=== PATIENT | female | born 1995 | race Caucasian/White ===

== ENCOUNTER 2020-01-01 22:03 | Emergency (ER) | payer MEDICAID, SELFPAY ==
[2020-01-01 22:04] VITALS: BP 119/71; PULSE 107; RESP 18; TEMP 36.3; O2SAT 99; BMI 25.3
--- NOTE | 2020-01-01 22:35 | ED.VIS.GEN ---
History of Present Illness Chief Complaint: Female C/O Informant: Patient Narrative: 24-year-old female G4, P2 at approximately 10 weeks presents with lower abdominal cramping and vaginal spotting. States it began earlier this afternoon. Denies any significant vaginal bleeding. Patient did have previous miscarriage at 5 weeks. States that she has had ultrasound which showed a live intrauterine . Past Medical History - Allergies and Home Meds Allergies/Adverse Reactions: Allergies ciprofloxacin [From Cipro] Allergy (Verified 11/06/15 01:15) Other sharp stomach and body pains Primary Care Physician: Joe Raza DO [Primary Care Provider] - Past Medical History: None Surgical History: no surgical history Lives: With Family Smoking Status: Current every day smoker Alcohol: None Drugs: None Review of Systems General: Denies: Chills, Fever, Sweats Eyes: Denies: Visual changes - bilaterally, Diplopia ENT: Denies: Rhinorrhea, Sore throat Cardiovascular: Denies: Chest pain, Palpitations Respiratory: Denies: Dyspnea, Cough, Dyspnea on exertion Gastrointestinal: Denies: Abdominal pain, Nausea, Vomiting, Diarrhea, Melena, Hematochezia Genitourinary: Reports: - - vaginal bleeding. Denies: Dysuria, Hematuria, Frequency Musculoskeletal: Denies: Back pain, Extremity Pain Skin: Denies: Rash, Wounds Neurological: Denies: Headache, Weakness, Numbness Physical Exam Vital Signs/Narrative: Vital Signs Temp Pulse Resp BP Pulse Ox 01/01/20 22:04 97.4 F L 107 H 18 119/71 99 Inital Vital Signs reviewed: Yes General: Well nourished, Well developed, No Acute Distress Head: Normocephalic, Atraumatic Eyes: Perrl, EOMI ENT: Moist mucous membranes, No rhinorrhea Neck: Supple, Nontender Cardiovascular: Regular rate, Regular rhythm, No murmurs Respiratory: No distress, CTA bilaterally, Chest nontender Abdomen: Soft, Nontender, Nondistended, Normal bowel sounds Back: Nontender, Normal Inspection Extremities: Nontender, No edema Skin: Normal color, No rash Neurological: Alert, Oriented x3, Cranial nerves II-XII grossly intact, Normal Strength, Normal Sensation Psychological: Normal affect, Normal Mood Diagnostic/Tx/Re-eval Laboratory Data 01/01/20 01/01/20 22:45 22:45 HCG, Quant [id number] H Urine Color Yellow Urine Clarity Clear Urine pH 6.5 Ur Specific [place] 1.020 Urine Protein Negative Urine Glucose (UA) Normal Urine Ketones 5 H Urine Occult Blood 150 H Urine Nitrite Negative Urine Bilirubin Negative Urine Urobilinogen 1 H Ur Leukocyte Esterase 500 H Urine RBC 0-5 SEEN Urine WBC 0-5 SEEN Ur Squamous Epith Cells 0-5 SEEN Urine Bacteria RARE Urine Mucus 0 SEEN - Medical Decision Making Patient appears well and nontoxic. Benign abdominal exam. Bedside ultrasound reveals live single intrauterine with a heart rate of approximately 152 bpm. Pelvic exam shows moderate amount of blood within the vaginal vault. The os is slightly open. In for threatened versus inevitable . Discussed this extensively with patient. Patient will follow-up with [facility] on Saturday. Asked to return for worsening pain or heavier bleeding. Patient agreeable and discharged home in stable condition. Impression: 1. threatened ED Disposition - Plan for ED Patient: Disposition: Home or Assisted Living Instructions: ED Possible Miscarriage Threatened Referrals: Joe Raza DO [Primary Care Provider] - Additional Instructions: Follow-up with your [facility] on Saturday for repeat beta hCG. Please return for worsening pain or vaginal bleeding.
[2020-01-01 22:52] LABS: Mucous, Urine 0 SEEN /hpf (<or=2+)
[2020-01-01 23:02] LABS: Color, Urine Yellow (Yellow); Glucose, Dipstick Normal (Normal); Ketone-Dipstick 5 mg/dl (Negative); Leukocyte Esterase-Dipstick 500 /ul (Negative); Nitrite-Dipstick Negative (Negative); Occult Blood-Urine 150 /ul (Negative); Protein-Dipstick Negative (Negative); Urine Bilirubin Dipstick Negative (Negative); Urine Clarity Clear (Clear); Urine Urobilinogen 1 mg/dl (Normal); Urine pH 6.5 (5.0 - 8.0)
[2020-01-01 23:09] LABS: Bacteria RARE /hpf (None Seen); Squamous Epithelial Cells - UA 0-5 SEEN /hpf (5-10); White Blood Cells 0-5 SEEN /hpf (0-5)
[2020-01-01 23:10] LABS: Red Blood Cells-Urine 0-5 SEEN /hpf (0-5)
== END 2020-01-02 00:10 | disposition home or self-care (01) ==
PROVIDERS: Emergency Provider Emergency Medicine; PCP Pediatrics
DX: O20.0 Threatened abortion (principal); F17.200 Nicotine dependence, unspecified, uncomplicated; Z3A.10 10 weeks gestation of pregnancy
CPT/HCPCS: 81001; 84702; 99282

== ENCOUNTER 2020-03-19 20:30 | Outpatient (CLI) | payer MEDICAID, SELFPAY ==
[2020-03-19 20:45] VITALS: BP 118/77; PULSE 109; TEMP 36.7
[2020-03-19 20:59] VITALS: BMI 25.0
[2020-03-19 21:05] LABS: Color, Urine Yellow (Yellow); Glucose, Dipstick Normal (Normal); Ketone-Dipstick Negative (Negative); Leukocyte Esterase-Dipstick 25 /ul (Negative); Nitrite-Dipstick Negative (Negative); Occult Blood-Urine 150 /ul (Negative); Protein-Dipstick Negative (Negative); Specific Gravity, Urine 1.025 (1.002-1.030); Urine Bilirubin Dipstick Negative (Negative); Urine Clarity Sl. Cloudy (Clear); Urine Urobilinogen Normal (Normal)
[2020-03-19 21:24] LABS: Amphetamine Urine VISTA NEGATIVE (<1000 ng/mL); Barbiturate Urine VISTA NEGATIVE (< 200 ng/mL); Benzodiazepine Urine VISTA NEGATIVE (< 200 ng/mL); Cocaine Urine VISTA NEGATIVE (< 300 ng/mL); Ecstacy Urine VISTA NEGATIVE (< 500 ng/mL); Methadone Urine VISTA NEGATIVE (< 300 ng/mL); PCP Urine VISTA NEGATIVE (< 25 ng/mL); THC Urine VISTA NEGATIVE (< 50 ng/mL); Vista UDS pH Range 6
--- NOTE | 2020-03-19 21:25 | OB.TRI.NOTE ---
- Problem List (1) 21 weeks gestation of Status: Acute (2) Abdominal cramping affecting Status: Acute History of Present Illness Date of Service: 03/19/20 Was patient seen by the physician?: Yes Reason For Visit: R/O LABOR Date of Service: 03/19/20 Final BASILIA: 07/26/20 Gestational age: 21 Weeks and 4 Days History of Present Illness: Patient is a at 21.4 weeks gestation that presents to triage for leaking mucus and fluid and stomach cramping. Positive movement. Denies any recent intercourse or vaginal bleeding. Allergies ciprofloxacin [From Cipro] Allergy (Verified 03/19/20 21:00) Other sharp stomach and body pains Laboratory Studies: Laboratory Tests 03/19/20 03/19/20 Range/Units 20:50 20:50 Urine Color Yellow (Yellow) Urine Clarity Sl. Cloudy (Clear) Urine pH 6.0 (5.0 - 8.0) Ur Specific [place] 1.025 (1.002-1.030) Urine Protein Negative (Negative) mg/dl Urine Glucose (UA) Normal (Normal) mg/dl Urine Ketones Negative (Negative) mg/dl Urine Occult Blood 150 H (Negative) /ul Urine Nitrite Negative (Negative) Urine Bilirubin Negative (Negative) mg/dL Urine Urobilinogen Normal (Normal) mg/dl Ur Leukocyte Esterase 25 H (Negative) /ul Urine Opiates Screen NEGATIVE (< 300 ng/mL) Urine Methadone Screen NEGATIVE (< 300 ng/mL) Ur Barbiturates Screen NEGATIVE (< 200 ng/mL) Ur Phencyclidine Scrn NEGATIVE (< 25 ng/mL) Ur Amphetamines Screen NEGATIVE (<1000 ng/mL) U Methamphetamin-MDMA NEGATIVE (< 500 ng/mL) U Benzodiazepines Scrn NEGATIVE (< 200 ng/mL) Urine Cocaine Screen NEGATIVE (< 300 ng/mL) U Cannabinoids Screen NEGATIVE (< 50 ng/mL) Ur Drug Screen Comment Review of Systems Constitutional: Denies: Chills, Fever, Malaise HEENT: Denies: Head Aches Cardiovascular: Denies: Chest Pain Respiratory: Denies: Cough, Shortness of Breath Gastrointestinal: Reports: Abdominal Pain Genitourinary: Denies: Dysuria Neurological: Denies: Headaches Physical Exam Vitals: Vital Signs Temp Pulse BP 98.0 F 109 H 118/77 03/19/20 20:45 03/19/20 20:45 03/19/20 20:45 General: Alert, Cooperative Cardiovascular: Regular rate Lungs: Normal air movement Abdomen: Soft, Non Tender, Gravid Neurological: Cranial nerves II-XII grossly intact Impression/Plan Patient is a at 21.4 weeks gestation with leaking of fluid and abdominal cramping. FHT 144 bpm via doppler Positive movement ROM plus collected and sent- negative UA collected and sent- Positive for blood and Leukocyte Estrace Will treat with Macrobid 100 mg PO BID x 7 days Discharge home
[2020-03-19 21:27] LABS: ROM Internal Control Test YES-OK TO RESULT pt. (Internal QC); ROM Patient Test Negative (Negative)
== END 2020-03-19 21:40 | disposition home or self-care (01) ==
LOC: WPOUT 20:33 → WP 20:33
PROVIDERS: PCP Pediatrics; Visit Provider Advanced Practice Midwife
DX: O26.892 Other specified pregnancy related conditions, second trimester (principal); R10.9 Unspecified abdominal pain; Z3A.21 21 weeks gestation of pregnancy
CPT/HCPCS: 59025; 59050; 80307; 81002; 84112; 87086; 87088; 99218; G0378

== ENCOUNTER 2020-05-26 17:54 | Outpatient (CLI) | payer MEDICAID, SELFPAY ==
[2020-05-26 18:04] VITALS: BMI 26.9
[2020-05-26 18:08] VITALS: BP 113/67; PULSE 102; TEMP 36.7; O2SAT 98
[2020-05-26 18:10] VITALS: BP 113/67; PULSE 102; TEMP 36.7; O2SAT 98
[2020-05-26 18:54] LABS: Mucous, Urine 0 SEEN /hpf (<or=2+); Red Blood Cells-Urine 0 SEEN /hpf (0-5)
[2020-05-26 18:55] LABS: Color, Urine Yellow (Yellow); Glucose, Dipstick Normal (Normal); Ketone-Dipstick Negative (Negative); Leukocyte Esterase-Dipstick 100 /ul (Negative); Nitrite-Dipstick Negative (Negative); Occult Blood-Urine 10 /ul (Negative); Protein-Dipstick Negative (Negative); Urine Bilirubin Dipstick Negative (Negative); Urine Clarity Clear (Clear); Urine Urobilinogen Normal (Normal)
[2020-05-26 19:03] LABS: Bacteria RARE /hpf (None Seen); Squamous Epithelial Cells - UA 0-5 SEEN /hpf (5-10); White Blood Cells 0-5 SEEN /hpf (0-5)
--- NOTE | 2020-05-27 08:28 | OB.TRI.HP_ITS ---
History of Present Illness Date of Service: 05/26/20 Was patient seen by the physician?: No Reason For Visit: RULE OUT LABOR Date of Service: 05/26/20 Final BASILIA: 07/27/20 Gestational age: 31 Weeks and 2 Days History of Present Illness: 24yo @ 31.2 weeks c/o multiple non specific concerns, just not feeling well today. Pt c/o pressure and some contractions- intermittent and mild Allergies ciprofloxacin [From Cipro] Allergy (Verified 03/19/20 21:00) Other sharp stomach and body pains Laboratory Studies: Laboratory Tests 05/26/20 Range/Units 18:45 Urine Color Yellow (Yellow) Urine Clarity Clear (Clear) Urine pH 7.0 (5.0 - 8.0) Ur Specific [place] 1.010 (1.002-1.030) Urine Protein Negative (Negative) mg/dl Urine Glucose (UA) Normal (Normal) mg/dl Urine Ketones Negative (Negative) mg/dl Urine Occult Blood 10 H (Negative) /ul Urine Nitrite Negative (Negative) Urine Bilirubin Negative (Negative) mg/dL Urine Urobilinogen Normal (Normal) mg/dl Ur Leukocyte Esterase 100 H (Negative) /ul Urine RBC 0 SEEN (0-5) /hpf Urine WBC 0-5 SEEN (0-5) /hpf Ur Squamous Epith Cells 0-5 SEEN (5-10) /hpf Urine Bacteria RARE (None Seen) /hpf Urine Mucus 0 SEEN (<or=2+) /hpf Physical Exam Vitals: Vital Signs Temp Pulse BP Pulse Ox 98.0 F 102 H 113/67 98 05/26/20 18:10 05/26/20 18:10 05/26/20 18:10 05/26/20 18:10 NST - FHR Rate Baby A Baseline: 140 Variability:: Moderate Accelerations:: 15 x 15 Decelerations:: None NST Reactive:: Yes FHR Category:: Category I Uterine Activity:: irregular- palpate mild per nursing staff. Impression/Plan 24yo @ 31.2 wks- Abd pain, False labor, UTI 1) urine dip shows blood- Keflex ordered 2) RTO as scheduled or sooner 3) cervix closed/50- not in labor 4) dc home
[2020-06-18 14:11] VITALS: PULSE 107; O2SAT 97
[2020-06-18 14:16] VITALS: PULSE 111; O2SAT 98
[2020-06-18 14:19] VITALS: BP 105/62; PULSE 102; PULSE 108; TEMP 36.9; O2SAT 98
== END 2020-05-26 19:35 | disposition home or self-care (01) ==
LOC: WPOUT 17:59 → OBT 18:00
PROVIDERS: PCP Pediatrics; Referring Provider Obstetrics & Gynecology; Visit Provider Obstetrics & Gynecology
DX: O47.03 False labor before 37 completed weeks of gestation, third trimester (principal); O23.43 Unspecified infection of urinary tract in pregnancy, third trimester; Z3A.31 31 weeks gestation of pregnancy
CPT/HCPCS: 59025; 59050; 81001; 87086; 87088; 99218; G0378

== ENCOUNTER 2020-06-18 13:55 | Outpatient (CLI) | payer MEDICAID, SELFPAY ==
[2020-06-18 14:49] VITALS: BMI 28.4
--- NOTE | 2020-06-24 05:27 | OB.TRI.NOTE ---
HPI - General HPI Narrative ANJUM BECKETT, is a 24 F who presents for pelvic pressure. PFSH Home Medications vit,[id number] [Prenatabs FA] 1 tab PO DAILY 11/06/15 [History Last Taken 05/25/20 19:00] Allergy/AdvReac Type Severity Reaction Status Date / Time ciprofloxacin [From Cipro] Allergy Other Verified 03/19/20 21:00 Social History Smoking Status: Current every day smoker History Elective abortions Hx Para 1 Spontaneous abortions Hx # Term Pregnancies Ectopic pregnancies Hx # Pregnancies Multiple births # of living children NST FHR Rate Baby A Baseline: 130 Variability:: Moderate Accelerations:: 15 x 15 Decelerations:: None NST Reactive:: Yes Uterine Activity:: Irregular Assessment & Plan Assessment/Plan (1) Threatened premature labor: Status: Acute Code(s): O47.00 - False labor before 37 completed weeks of gestation, unspecified trimester Plan: Reactive NST
== END 2020-06-18 14:10 | disposition home or self-care (01) ==
LOC: WPOUT 14:48 → WP 14:49
PROVIDERS: PCP Pediatrics; Visit Provider Obstetrics & Gynecology
DX: Z00.00 Encounter for general adult medical examination without abnormal findings (principal)
CPT/HCPCS: 59025; 59050; 99218; G0378

== ENCOUNTER 2020-07-20 20:25 | Inpatient (IN) | payer MEDICAID, SELFPAY ==
[2020-07-20] VITALS (14 sets, daily range): BP systolic 106–120; BP diastolic 55–70; PULSE 78–96; O2SAT 96–98; BMI 28.8
[2020-07-20] MEDS: Oxytocin 10 UNITS/ML Vial IM (20:33)
--- NOTE | 2020-07-20 20:43 | HP.PCM.OB_ITS ---
HPI - General General Date of Admission: 07/20/20 HPI Narrative ANJUM BECKETT, is a 24 F who presents at 39.1 weeks c/o contractions-patient went to the bathroom and reports water broke and delivered precipitously [facility]. Maternal Data Information BASILIA Calculator Estimated Delivery Date Method Current WG Current Estimate 07/26/20 Manual 39w 1d PFSH Home Medications vit,[id number] [Prenatabs FA] 1 tab PO DAILY 11/06/15 [History Last Taken 05/25/20 19:00] Allergy/AdvReac Type Severity Reaction Status Date / Time ciprofloxacin [From Cipro] Allergy Other Verified 03/19/20 21:00 Social History Smoking Status: Current every day smoker History Elective abortions Hx Para 1 Spontaneous abortions Hx # Term Pregnancies Ectopic pregnancies Hx # Pregnancies Multiple births # of living children Visit Details Expected Delivery Route/Plan delivered precipitously - nursing staff present at [employer] 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 admit to L&D Vital Signs Vital Signs Vital Signs: 07/20/20 20:30 07/20/20 20:35 07/20/20 20:38 Pulse Rate 92 94 93 Blood Pressure 116/65 BP Systolic 116 BP Diastolic 65 Pulse Ox 96 97 Weight Body Mass Index (BMI) 28.4 Labs Labs Labs: Blood Type O NEGATIVE Antibody Screen NEGATIVE Hct 33.3 % (37-47) L Hgb 10.7 g/dl (12.0-15.0) L Rhogam given: No Assessment & Plan (1) Active labor: PLAN: admit to L&D- precipitous delivery upon arrival on unit
--- NOTE | 2020-07-20 20:46 | OP.PCM_ITS ---
Assessment & Plan (1) Precipitous delivery: Maternal Data Information BASILIA Calculator Estimated Delivery Date Method Current WG Current Estimate 07/26/20 Manual 39w 1d Vaginal Delivery Maternal Presentation Maternal Presentation: Active Labor Maternal Presentation: pt arrived on unit to rule out labor. She used the bathroom and while on the toilet her water broke and infant delivered spontaneously nursing was present for delivery and was able to deliver infant on toilet without trauma. Operative Information Date of Procedure: 07/20/20 Pre-Operative Diagnosis: term gestation, active labor Post-Operative Diagnosis: precipitous delivery, live female infant Type of Anesthesia: None Estimated Blood Loss: 100 Time of Delivery: 20:25 Findings Description of Procedure: I was paged to come to hospital stat due to precipitous delivery. Patient presented to labor and delivery to rule out labor prior to putting the patient on the monitor she use the bathroom while in the toilet her water broke and infant spontaneously delivered nursing was available and able to deliver the infant without complication. Patient was then placed in the bed when I arrived shortly after being paged the cord was clamped and patient had received 10units IM of Pitocin. Cord blood obtained due to RH negat jenny status. Placenta was delivered intact without complication and intact. No lacerations appreciated on exam. minimal lochia. Presentation: Vertex Amniotic Membrane Rupture Type: Spontaneous Amniotic Fluid Description: Clear Placental Delivery Description: Spontaneous Placenta Disposition: [facility] Specimen(s) Removed: placenta Cord Vessel Description: 3 Vessels Cord Entanglement: None A Gender: Female (1 minute): 8 (5 minute): 9 Delayed Cord Clamping: No Post Vaginal Delivery Medications Given After Delivery: - (IM pitocin 10units ) Episiotomy Description: None Laceration: None Complication Complications: None Admit VTE Documentation VTE Present on Admission: No VTE Mechan Device Prophylaxis: None VTE Pharm Prophylaxis Ordered: No Reason Prophylaxis Not Ordered: Procedure Not Indicated
[2020-07-20 21:02] LABS: Absolute Lymphocyte Count 3.09 X10^3/uL (0.83-4.51); Absolute Neutrophil Count 11.6 X10^3/uL (2.0-7.7); Basophil# 0.04 X10^3/uL; Basophil% 0.3 % (0-1); Eosinophil# 0.07 X10^3/uL; Eosinophils% 0.4 % (0-5); Hematocrit 34.7 % (37-47); Hemoglobin 11.1 g/dL (12.0-15.0); Lymphocyte # 3.09 X10^3/ul (0.83-4.51); Lymphocyte % 19.8 % (19-41); Mean Corpuscular Hgb 28.7 pg (27.0-32.0); Mean Corpuscular Volume 89.7 fL (81-99); Mean Platelet Vol. 9.6 fl (6.2-12.0); Monocyte# 0.77 X10^3/uL; Monocyte% 4.9 % (0-10); NRBC Flagged by Analyzer 0 % (0-5); Neutrophil # 11.57 X10^3/uL (2.7-7.7); Neutrophil % 74.1 % (47-70); Platelet Count 336 K/mm3 (150-450); RBC Distribution Width CV 12.6 % (11.6-14.6); RBC Distribution Width SD 41.4 fl (35.1-43.9); Red Blood Count 3.87 M/mm3 (4.2-5.4); White Blood Count 15.6 K/mm3 (4.4-11.0)
[2020-07-20 21:31] LABS: Amphetamine Urine VISTA NEGATIVE (<1000 ng/mL); BUP Internal Control LINE = VALID (VALID); Barbiturate Urine VISTA NEGATIVE (< 200 ng/mL); Benzodiazepine Urine VISTA NEGATIVE (< 200 ng/mL); Buprenorphine Drug Screen Negative (<10 ng/mL); Cocaine Urine VISTA NEGATIVE (< 300 ng/mL); Ecstacy Urine VISTA NEGATIVE (< 500 ng/mL); Methadone Urine VISTA NEGATIVE (< 300 ng/mL); PCP Urine VISTA NEGATIVE (< 25 ng/mL); THC Urine VISTA NEGATIVE (< 50 ng/mL); Vista UDS pH Range 6
[2020-07-21 01:01] VITALS: BP 103/59; RESP 16; TEMP 36.6
[2020-07-21] MEDS: Senna/Docusate Sodium 1 Tablet PO (01:07)
[2020-07-21] MEDS: Ibuprofen 600 MG Tablet PO ×2 (01:23→18:31)
[2020-07-21 03:22] VITALS: BP 108/62; PULSE 85; RESP 16; TEMP 36.3
--- NOTE | 2020-07-21 07:34 | PN_ITS ---
Subjective Subjective Doing well per patient and nursing staff. Ambulating and taking PO without difficulty. Voiding and passing flatus. Denies headache, visual changes, chest pain, SOB, leg pain, or increased vaginal bleeding. Pain controlled. Breast feeding. Planning D/C home today if able. Objective Data Objective Data Vital Signs: Vital Signs Temp Pulse Resp BP Pulse Ox 97.3 F L 85 16 108/62 98 07/21/20 03:22 07/21/20 03:22 07/21/20 03:22 07/21/20 03:22 07/20/20 20:50 Oxygen Delivery Method Room Air Weight: 157 lb 6.4 oz Body Mass Index (BMI) 28.8 Lab / Micro Data Result Diagrams: 07/21/20 08:00 Labs: Laboratory Results - last 24 hr 07/20/20 07/20/20 07/20/20 20:24 20:24 20:45 WBC 15.6 H RBC 3.87 L Hgb 11.1 L Hct 34.7 L MCV 89.7 MCH 28.7 MCHC 32.0 RDW Std Deviation 41.4 RDW Coeff of [place] 12.6 Plt Count 336 MPV 9.6 Immature Gran % (Auto) 0.500 Neut % (Auto) 74.1 H Lymph % (Auto) 19.8 [place] % (Auto) 4.9 Eos % (Auto) 0.4 Baso % (Auto) 0.3 Absolute Neuts (auto) 11.6 H Absolute Lymphs (auto) 3.09 Nucleated RBC % 0 Urine Opiates Screen NEGATIVE Ur Buprenorphine Scrn Negative Urine Methadone Screen NEGATIVE Ur Barbiturates Screen NEGATIVE Ur Phencyclidine Scrn NEGATIVE Ur Amphetamines Screen NEGATIVE U Methamphetamin-MDMA NEGATIVE U Benzodiazepines Scrn NEGATIVE Urine Cocaine Screen NEGATIVE U Cannabinoids Screen NEGATIVE Ur Drug Screen Comment Blood Type Antibody Screen Screen Baby's Blood Type Baby's DUNIA 07/20/20 07/20/20 07/21/20 20:45 20:45 00:32 WBC RBC Hgb Hct MCV MCH MCHC RDW Std Deviation RDW Coeff of [place] Plt Count MPV Immature Gran % (Auto) Neut % (Auto) Lymph % (Auto) [place] % (Auto) Eos % (Auto) Baso % (Auto) Absolute Neuts (auto) Absolute Lymphs (auto) Nucleated RBC % Urine Opiates Screen Ur Buprenorphine Scrn Urine Methadone Screen Ur Barbiturates Screen Ur Phencyclidine Scrn Ur Amphetamines Screen U Methamphetamin-MDMA U Benzodiazepines Scrn Urine Cocaine Screen U Cannabinoids Screen Ur Drug Screen Comment Blood Type O NEGATIVE Antibody Screen Cancelled Screen NEGATIVE Baby's Blood Type O POSITIVE Baby's DUNIA NEGATIVE Micro: Microbiology 07/20/20 21:00 Mucosa - Nose SARS-CoV-2 Antigen (Rapid) - Final Physical Exam Const alert and oriented x3 General Appearance: cooperative Orientation / Consciousness: awake, oriented to person, oriented to place and oriented to time Exam Limitations: no limitations HEENT normocephalic Head and Scalp: normal to inspection, normocephalic and atraumatic Face and Sinus: normal facial exam Eyes General Eye: normal appearance of both eyes Neck full ROM Chest Chest: symmetrical chest wall rise Resp normal respiratory effort and normal air movement Auscultation: clear to auscultation bilaterally Cardio regular rate, regular rhythm, S1 normal heart sound, S2 normal heart sound, no murmurs, no rub, no gallops and no clicks GI normal to inspection, nondistended, normoactive bowel sounds and non-tender appearance of the vagina normal Bladder / Kidney Exam: no CVA tenderness Back/Spine normal ROM Extremity normal to inspection and full ROM Skin no rashes or lesions noted Neuro oriented x3, CN's II-XII intact bilaterally and moves all extremities Sensorium / Orientation: awake, alert and oriented to person Motor Exam: clonus absent Deep Tendon Reflexes: Rt Patellar (L4): 2+ and Lt Patellar (L4): 2+ Assessment & Plan Assessment/Plan (1) Precipitous delivery: (2) Vaginal delivery: PLAN: 1) Routine and support 2) Vitals stable 3) Pain controlled 4) Planning D/C home tomorrow 5) Iron supplement
[2020-07-21 08:08] LABS: Hematocrit 29.6 % (37-47); Hemoglobin 9.4 g/dL (12.0-15.0); Mean Corp Hgb Conc 31.8 g/dL (32-36); Mean Corpuscular Hgb 28.5 pg (27.0-32.0); Mean Corpuscular Volume 89.7 fL (81-99); Mean Platelet Vol. 9.3 fl (6.2-12.0); Platelet Count 312 K/mm3 (150-450); RBC Distribution Width CV 12.6 % (11.6-14.6); RBC Distribution Width SD 40.9 fl (35.1-43.9); White Blood Count 15.2 K/mm3 (4.4-11.0)
[2020-07-21 08:30] VITALS: BP 108/67; PULSE 87; RESP 18; TEMP 36.6
[2020-07-21 11:27] VITALS: BP 113/56; PULSE 100; RESP 18; TEMP 36.2
[2020-07-21 16:30] VITALS: BP 110/60; PULSE 87; RESP 18; TEMP 36.4
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
[2020-07-21] MEDS: Hydrocortisone 2.5% Crm 1 APPLIC TOPICAL (18:30)
[2020-07-21] MEDS: Ferrous Sulfate 325 MG Tablet PO (18:30)
[2020-07-21 20:54] VITALS: BP 108/55; PULSE 81; RESP 18; TEMP 36.3
--- NOTE | 2020-07-22 09:27 | CASEMGMT ---
Social Work Labor and Delivery Unit Call to [facility] ([facility]) [phone], and spoke with Jacinta Osman. Referral due to concerns for substance exposed infant in utero, with endorsed marijuana use in . Positive drug screen in December with subsequent maternal testing negative. Urine negative, meconium on baby pending. Brief maternal and infant histories provided. No other services requested or indicated, other than monitoring for meconium drug screen results. -SABINO Giron, FINISHED YARN EXAMINER
== END 2020-07-21 22:25 | disposition home or self-care (01) | DRG 560 ==
LOC: WPOUT 20:25 → WP 20:25 → WPOUT 20:29 → WP 21:01
PROVIDERS: Admitting Provider Obstetrics & Gynecology; PCP Pediatrics; Visit Provider Obstetrics & Gynecology
DX: O62.3 Precipitate labor (principal); Z3A.39 39 weeks gestation of pregnancy; F17.200 Nicotine dependence, unspecified, uncomplicated; O99.334 Smoking (tobacco) complicating childbirth; Z37.0 Single live birth
CPT/HCPCS: 80307; 85025; 85027; 85461; 86850; 86900; 86901; 87426; 90384; J2790

== ENCOUNTER 2021-10-18 18:04 | Emergency (ER) | payer MEDICAID, SELFPAY ==
[2021-10-18 18:05] VITALS: BP 125/86; PULSE 112; RESP 14; TEMP 36.6; O2SAT 99; BMI 24.0
--- NOTE | 2021-10-18 18:30 | EKG12_ITS ---
Test Reason : DYSRHYTHMIA Blood Pressure : / mmHG Vent. Rate : 088 BPM Atrial Rate : 088 BPM P-R Int : 138 ms QRS Dur : 094 ms QT Int : 372 ms P-R-T Axes : 065 087 047 degrees QTc Int : 450 ms Normal sinus rhythm Normal ECG Confirmed by ARIANA MARTINEZ, WHITNEY ([id number]), videotape editor ROMAN ROBLERO ([id number]) on 10/19/2021 1:28:45 PM Referred By: RAFAEL Confirmed By:PATRICE LAEN MD
--- NOTE | 2021-10-18 18:31 | EX.ED.DYSGE1 ---
HPI History of Present Illness Chief Complaint: Shortness of Breath Informant: patient Narrative Narrative: Intermittent chest tightness starting yesterday 11 AM. Squeezing sensation to her throat lasted 30 minutes. Since then intermittent symptoms however less significant last time was 30 minutes ago. Tobacco history reports a smoker's cough. Mother with [place] in her 40s. Patient denies history of hypertension diabetes or hyperlipidemia. Denies recent travel surgery or immobilizations. No history of PE or DVT. No stress test in the past. Currently symptoms are very mild. Reports dyspnea with exertion. No leg swelling or cramping. Prior similar symptoms: No PFSH PFSH Medical History Trauma Home Medications etonogestrel 0.12 mg-ethinyl estradiol 0.015 mg/24 hr vaginal ring 1 vag ring vaginal X1 10/18/21 [History Last Taken Unknown] Allergy/AdvReac Type Severity Reaction Status Date / Time ciprofloxacin [From Cipro] Allergy Other Verified 10/18/21 18:05 nitrofurantoin Allergy Hives Verified 10/18/21 18:05 [From Macrobid] Social History Smoking Status: Heavy Smoker (>10/day) ROS ROS ED Constitutional Constitutional ED: Denies chills, fever(s) or sweats Eyes Eyes: Denies change in vision ENT ENT ED: Denies dysphagia or sore throat Cardiovascular Cardiovascular: Reports chest pain; Denies leg edema, palpitations or racing heartbeat Respiratory/Chest Respiratory/Chest: Reports dyspnea; Denies cough or dyspnea on exertion Gastrointestinal Gastrointestinal: Denies abdominal pain, diarrhea, nausea or vomiting Genitourinary Genitourinary ED: Denies dysuria, hematuria or urinary frequency Musculoskeletal Musculoskeletal: Denies back pain, extremity pain or neck pain Integumentary Denies rash or wounds Neurologic Neurologic: Denies headache(s), paresthesias or weakness EXAM Physical Exam Const Vital Signs: 10/18/21 18:05 10/18/21 18:37 10/18/21 18:43 Temperature 98 F Temperature Source Temporal Pulse Rate 112 H Respiratory Rate 14 Respiratory Effort Short of Breath Respiratory Depth Normal Respiratory Pattern Normal Blood Pressure 125/86 H Blood Pressure Mean 99 Pulse Ox 99 96 Oxygen Delivery Method Room Air Room Air Room Air 10/18/21 19:13 10/18/21 19:29 10/18/21 20:37 Temperature Temperature Source Pulse Rate 87 90 85 Respiratory Rate 21 H 15 15 Respiratory Effort Respiratory Depth Respiratory Pattern Blood Pressure 120/81 H 120/76 Blood Pressure Mean 94 Pulse Ox 98 99 99 Oxygen Delivery Method Room Air Room Air Positive well nourished and well developed General Appearance ED: well developed and NAD HEENT Reports moist mucous membranes normocephalic and atraumatic Eyes PERRL, EOMs intact bilaterally and conjunctivae normal General Eye ED: Yes normal appearance of both eyes Neck no lymphadenopathy and supple General: Negative for tenderness Chest Wall Chest: Negative for tenderness Resp normal respiratory effort and normal air movement Effort and Inspection: symmetric chest movement; Negative for respiratory distress Cardio regular rhythm and no murmurs Rate: tachycardic Peripheral Pulses: pulses 2+ throughout GI normal to inspection, nondistended, normoactive bowel sounds and non-tender Palpation: Negative for guarding or rebound tenderness present Back/Spine no CVA tenderness and no thoracic nor lumbar tenderness Extremity normal to inspection General Extremety ED: Negative for edema or tenderness General Extremity: Negative for edema Neuro oriented x3 and no sensory deficits noted Sensorium / Orientation: awake and alert Skin no rashes or lesions noted and no wounds MDM MDM MDM Narrative Medical decision making narrative: Patient EKG normal. Cardiac work-up normal negative with initial troponin of 20. Low risk Wells criteria for PE with tachycardia. EKG however was sinus. A D-dimer was obtained negative. TV chest x-ray reviewed by myself and read by radiology were negative. Patient remained symptom-free. Discussed algorithm with repeat troponin after 2 hours however patient declines and stated she would like to go home. Discussed outpatient evaluation and strict return precautions. She understands and agrees with plan. All questions were answered. Lab Data Attestation: I reviewed the patient's lab results. Labs: Laboratory Results - last 24 hr 10/18/21 10/18/21 10/18/21 18:40 18:40 18:40 WBC 9.2 RBC 4.58 Hgb 14.2 Hct 42.6 MCV 93.0 MCH 31.0 MCHC 33.3 RDW Std Deviation 42.4 RDW Coeff of [place] 12.3 Plt Count 289 MPV 9.1 Immature Gran % (Auto) 0.200 Neut % (Auto) 49.3 Lymph % (Auto) 40.6 [place] % (Auto) 5.3 Eos % (Auto) 3.7 Baso % (Auto) 0.9 Absolute Neuts (auto) 4.5 Absolute Lymphs (auto) 3.74 Nucleated RBC % 0 D-Dimer Quant (PE/DVT) Sodium 138 Potassium 3.5 Chloride 107 Carbon Dioxide 24.0 Anion Gap 7 BUN 10 Creatinine 0.67 Estim Creat Clear Calc 101.52 Est GFR (MDRD) Af Amer 139 Est GFR (MDRD) Non-Af 114 BUN/Creatinine Ratio 15.0 Glucose 93 Calcium 9.3 Troponin I High Sens 20 Serum , Qual NEGATIVE 10/18/21 18:40 WBC RBC Hgb Hct MCV MCH MCHC RDW Std Deviation RDW Coeff of [place] Plt Count MPV Immature Gran % (Auto) Neut % (Auto) Lymph % (Auto) [place] % (Auto) Eos % (Auto) Baso % (Auto) Absolute Neuts (auto) Absolute Lymphs (auto) Nucleated RBC % D-Dimer Quant (PE/DVT) < 0.27 L Sodium Potassium Chloride Carbon Dioxide Anion Gap BUN Creatinine Estim Creat Clear Calc Est GFR (MDRD) Af Amer Est GFR (MDRD) Non-Af BUN/Creatinine Ratio Glucose Calcium Troponin I High Sens Serum , Qual Radiography Diagnostic Testing: Clinical Impression(s) from Imaging Studies Chest X-Ray 10/18/21 20:40 IMPRESSION: No acute cardiopulmonary disease. Electronically Signed: Jake Roberto DO at 20:51 EDT Reading Location ID and State: [address] [place] [address] Tel [phone], Service support , EKG Initial EKG: Attestation: I personally reviewed and interpreted this EKG as follows: Comments: Sinus rhythm 88, no ST or T wave changes. Discharge Plan Triage Chief Complaint: Shortness of Breath ED Provider: Santana Nowak Dx/Rx/DC Orders Clinical Impression: Chest pain, Tobacco dependence Instructions: ED Chest Pain, Uncertain Cause Prescriptions: No Action etonogestrel-ethinyl estradiol 0.12-0.015 mg/24 hr ring 1 vag ring VAGINAL X1 Label Comments: Use 1 ring vaginally as directed. Use continuously. Insert a new Nuvaring every 3 weeks. Primary Care Provider: Care Physician,No Primary Referrals: Joe Raza DO [Non-Staff] - 3-5 Days Disposition Disposition: Home, Self Care Discharge Date/Time: 10/18/21 21:01
[2021-10-18 18:43] VITALS: O2SAT 96
[2021-10-18 18:49] LABS: Absolute Lymphocyte Count 3.74 X10^3/uL (0.83-4.51); Absolute Neutrophil Count 4.5 X10^3/uL (2.0-7.7); Basophil# 0.08 X10^3/uL; Basophil% 0.9 % (0-1); Eosinophil# 0.34 X10^3/uL; Eosinophils% 3.7 % (0-5); Hematocrit 42.6 % (37-47); Hemoglobin 14.2 g/dL (12.0-15.0); Lymphocyte # 3.74 X10^3/ul (0.83-4.51); Lymphocyte % 40.6 % (19-41); Mean Corp Hgb Conc 33.3 g/dL (32-36); Mean Platelet Vol. 9.1 fl (6.2-12.0); Monocyte# 0.49 X10^3/uL; Monocyte% 5.3 % (0-10); NRBC Flagged by Analyzer 0 % (0-5); Neutrophil # 4.54 X10^3/uL (2.7-7.7); Neutrophil % 49.3 % (47-70); Platelet Count 289 K/mm3 (150-450); RBC Distribution Width CV 12.3 % (11.6-14.6); RBC Distribution Width SD 42.4 fl (35.1-43.9); Red Blood Count 4.58 M/mm3 (4.2-5.4); White Blood Count 9.2 K/mm3 (4.4-11.0)
[2021-10-18 19:07] LABS: Anion Gap 7 (5-15); BUN 10 mg/dL (7-18); Calcium,Total 9.3 mg/dL (8.5-10.1); Chloride 107 mmol/L (98-107); Creatinine, Serum 0.67 mg/dL (0.55-1.02); EST Glomerular Filtration Rate 114 mL/min (>60); Est Glom Filt Rate - Afr Amer 139 mL/min (>60); Estimated Creatinine Clearance 101.52 ml/min; Glucose 93 mg/dL (74-106); Potassium 3.5 mmol/L (3.5-5.1); Sodium Level 138 mmol/L (136-145); Troponin-I HS (w/2H Reflex) 20 pg/mL (3.0-54.0)
[2021-10-18 19:10] LABS: Internal QC Validated? YES +Cl - CLEAR BKGD; Pregnancy, Serum, hCG Quali. NEGATIVE Negative
[2021-10-18 19:13] VITALS: PULSE 87; RESP 21; O2SAT 98
[2021-10-18 19:29] VITALS: BP 120/81; PULSE 90; RESP 15; O2SAT 99
[2021-10-18 20:21] LABS: D-Dimer Quantitative (DVT/PE) < 0.27 FEU/ug/m (0.27-0.49)
[2021-10-18 20:37] VITALS: BP 120/76; PULSE 85; RESP 15; O2SAT 99
--- NOTE | 2021-10-18 20:40 | RAD_ITS ---
STUDY: X-RAY CHEST REASON FOR EXAM: Female, 26 years old. Chest pain. TECHNIQUE: PA and lateral views of the chest. COMPARISON: None. FINDINGS: The lungs are clear and expanded. There is no demonstrated pleural abnormality. Normal size heart. Normal mediastinum and jeannette. Normal visualized pulmonary arteries. Normal visualized aortic arch and descending thoracic aorta. Normal visualized thoracic spine. Normal visualized ribs, clavicles, and shoulders. There is no demonstrated abnormality of the visualized soft tissue structures of the upper abdomen. RAD/Chest PA and Lateral IMPRESSION: No acute cardiopulmonary disease. Electronically Signed: Jake Rboerto DO at 20:51 EDT ,
[2021-10-18 20:46] LABS: Reflex Troponin-HS? (from REC) Y
--- NOTE | 2021-10-18 21:00 | ED.RN ---
PATIENT DID NOT WANT TO STAY IN ED FOR 2ND TROPONIN. D/C INSTRUCTIONS REVIEWED WITH PATIENT. VSS. HOME WITH FAMILY
== END 2021-10-18 21:01 | disposition home or self-care (01) ==
PROVIDERS: Emergency Provider Emergency Medicine; Visit Provider Emergency Medicine
DX: R07.9 Chest pain, unspecified (principal); F17.200 Nicotine dependence, unspecified, uncomplicated; R06.02 Shortness of breath
CPT/HCPCS: 71046; 80048; 84484; 84703; 85025; 85379; 93005; 99283; A4216

== ENCOUNTER 2023-08-21 14:35 | Emergency (ER) | payer MEDICAID, SELFPAY ==
[2023-08-21 14:37] VITALS: BP 120/100; PULSE 130; RESP 22; TEMP 36.3; O2SAT 98; BMI 21.2
--- NOTE | 2023-08-21 15:09 | EKG12_ITS ---
Test Reason : Blood Pressure : / mmHG Vent. Rate : 092 BPM Atrial Rate : 092 BPM P-R Int : 146 ms QRS Dur : 098 ms QT Int : 378 ms P-R-T Axes : 072 086 005 degrees QTc Int : 467 ms Normal sinus rhythm Nonspecific T wave abnormality Prolonged QT Abnormal ECG Confirmed by See Yarbrough ([id number]), film editor ROMAN ROBLERO ([id number]) on 08/22/2023 11:19:47 AM Referred By: Confirmed By:See Yarbrough
--- NOTE | 2023-08-21 15:09 | CT_ITS ---
STUDY: CT BRAIN WITHOUT CONTRAST REASON FOR EXAM: Female, 27 years old. paraesthesias and syncope RADIATION DOSAGE (If Supplied By Facility): CTDIvol = ( 44.99 ) mGy, DLP = ( 745.49 ) mGycm TECHNIQUE: Transaxial CT imaging of the brain was performed without administration of intravenous contrast material. Individualized dose optimization techniques were used for this CT. COMPARISON: No relevant priors. FINDINGS: Normal soft tissue structures. Normal calvarium. Normal size ventricles and extra-axial spaces for the patient''s age. Normal white matter tracts of the cerebral hemispheres. Normal basal ganglia and thalami. Normal brainstem. Normal cerebellum. There is no intracranial hemorrhage. There are no findings of an acute ischemic infarction. Polyp or mucous retention cyst in right sphenoid sinus.. CT/Brain/Head without Contrast IMPRESSION: Normal unenhanced CT scan of the brain MRI may be useful for more definitive evaluation. Incidental finding of right sphenoid sinus disease likely chronic Electronically Signed: Feliciano Sweeney MD at 16:32 EDT Reading Location ID and State: [facility] / [place] Tel , Service support ,
--- NOTE | 2023-08-21 15:10 | EDS_ITS ---
HPI History of Present Illness Chief Complaint: Numb/Ting Detail of Chief Complaint: Paresthesias and syncope Informant: patient Narrative Narrative: Patient presents to the emergency department with multiple complaints. Patient complains mostly of an episode 4 weeks ago where she had put her daughter to sleep and stood up and then felt lightheaded and dizzy and felt like she was in a pass out. Patient went to the bathroom and sat on toilet and had a syncopal episode. Afterward she felt very hot. Since then she has been having intermittent episodes of numbness and tingling to the left side of her face and tongue as well as her left fingertips. At times she had some heart racing. Patient does have history of anxiety. She does smoke marijuana occasionally. She does smoke cigarettes. Denies any other illicit drugs. Patient states that she just wants to make sure that she is okay because she is a mother of 4 and just wants checked out. Patient at times has intermittent headaches. Peers mostly around time of her period. Denies family history of brain tumors or aneurysms. No family history of MS. [facility] [place] [facility] History Trauma Home Medications ?Medication ?Instructions ?Recorded ?Last Taken ?Type etonogestrel 0.12 mg-ethinyl 1 vag ring vaginal X1 10/18/21 Unknown History estradiol 0.015 mg/24 hr vaginal ring lorazepam 1 mg tablet (Ativan) 1 mg PO TID PRN anxiety #10 tabs 08/21/23 Unknown Rx Allergy/AdvReac Type Severity Reaction Status Date / Time ciprofloxacin (From Cipro) Allergy Other Verified 10/18/21 18:05 nitrofurantoin (From Allergy Hives Verified 10/18/21 18:05 Macrobid) Social History Smoking Status: Heavy Smoker (>10/day) ROS ROS ED Review of Systems ROS Unobtainable: other Constitutional Constitutional ED: Reports lethargy; Denies chills, fever(s), sweats or weight loss Eyes Eyes: Denies blurry vision, change in vision or diplopia ENT ENT ED: Denies rhinorrhea or sore throat Cardiovascular Cardiovascular: Reports racing heartbeat; Denies chest pain or orthopnea Respiratory/Chest Respiratory/Chest: Denies cough, dyspnea, dyspnea on exertion, orthopnea or sputum Gastrointestinal Gastrointestinal: Denies abdominal pain, diarrhea, nausea or vomiting Genitourinary Genitourinary ED: Denies dysuria, hematuria or urinary frequency Musculoskeletal Musculoskeletal: Denies arthralgias, back pain, myalgias or neck pain Integumentary Denies abscess, Abrasions or rash Neurologic Neurologic: Reports headache(s) and paresthesias; Denies weakness Psychiatric Psychiatric: Denies anxiety, depression or suicidal thoughts Endocrine Endocrinology: Denies polydipsia, polyphagia or polyuria Hematologic/Lymphatic Hematologic/Lymphatic: Denies easy bleeding, easy bruising or lymphadenopathy Allergic/Immunologic Allergic/Immunologic ED: Denies mouth swelling, tongue swelling or urticaria EXAM Physical Exam Const Vital Signs: 08/21/23 14:37 Temperature 97.3 F L Temperature Source Temporal Pulse Rate 130 H Respiratory Rate 22 H Blood Pressure 120/100 H Blood Pressure Mean 106 Pulse Ox 98 Oxygen Delivery Method Room Air Positive well nourished and well developed General Appearance ED: well developed and NAD HEENT Reports TM's clear and moist mucous membranes normocephalic and atraumatic; Negative for trauma or tenderness Tympanic Membrane ED: Yes TM's clear Eyes PERRL and EOMs intact bilaterally General Eye ED: Negative for pale conjunctiva or scleral icterus Neck no lymphadenopathy, supple and no JVD General: Negative for tenderness Chest Wall inspection of chest normal and palpation of chest normal Chest: Negative for tenderness Resp normal respiratory effort and clear to auscultation bilaterally Effort and Inspection: Negative for respiratory distress or pain with movement Auscultation: Negative for rhonchi, wheezes or diminished lung sounds Cardio regular rate, regular rhythm, S1 normal heart sound, S2 normal heart sound and no murmurs Peripheral Pulses: pulses 2+ throughout GI normal to inspection, nondistended, normoactive bowel sounds, soft to palpation, non-tender, non-distended and no masses Back/Spine no CVA tenderness and no thoracic nor lumbar tenderness Extremity normal to inspection General Extremety ED: Negative for edema General Extremity: Negative for edema Neuro oriented x3, CN's II-XII intact bilaterally, no sensory deficits noted and gait normal Sensorium / Orientation: awake, alert, oriented to person, oriented to place and oriented to time Motor Exam: strength 5/5 throughout and strength abnormal Psych mental status grossly normal Skin no rashes or lesions noted and no wounds MDM MDM MDM Narrative Medical decision making narrative: Patient presents to the emergency department with multiple complaints of paresthesias and a syncopal episode. She does have some history of PTSD and anxiety. In the differential also would be electrolyte abnormality or mass which I feel is less likely. Suspect possibility for complex migraine. IV line established. CBC with differential white count 9.6 with hemoglobin 15 and platelet count of 287. Chemistries unremarkable. TSH was normal 1.2. hCG was negative. EKG obtained arrival shows sinus rhythm with a ventricular rate of [address] changes[address] scan of the brain without contrast was unremarkable. Lab Data Attestation: I reviewed the patient's lab results. Labs: Laboratory Results - last 24 hr 08/21/23 15:25 WBC 9.6 RBC 5.13 Hgb 15.5 H Hct 46.0 MCV 89.7 MCH 30.2 MCHC 33.7 RDW Std Deviation 41.4 RDW Coeff of [place] 12.5 Plt Count 287 MPV 9.5 Immature Gran % (Auto) 0.400 Neut % (Auto) 66.5 Lymph % (Auto) 27.1 [place] % (Auto) 4.5 Eos % (Auto) 0.7 Baso % (Auto) 0.8 Absolute Neuts (auto) 6.4 Absolute Lymphs (auto) 2.61 Nucleated RBC % 0 Sodium 137 Potassium 3.3 L Chloride 109 H Carbon Dioxide 24.0 Anion Gap 4 L BUN 8 Creatinine 0.65 Estim Creat Clear Calc 103.73 Est GFR (MDRD) Af Amer 141 Est GFR (MDRD) Non-Af 117 BUN/Creatinine Ratio 12.4 Glucose 102 Calcium 9.9 TSH 1.20 Serum , Qual NEGATIVE EKG Initial EKG: Attestation: I personally reviewed and interpreted this EKG as follows: Comments: Sinus rhythm with ventricular rate of [address] changes Discharge Plan Triage Chief Complaint: Numb/Ting ED Provider: Sebastian Mejia Dx/Rx/DC Orders Clinical Impression: Paresthesias, Syncope, vasovagal Instructions: ED Fainting, Vagal Reaction, ED Paraesthesias Prescriptions: New lorazepam [Ativan] 1 mg tablet 1 mg PO TID PRN (Reason: anxiety) Qty: 10 0RF No Action etonogestrel-ethinyl estradiol 0.12-0.015 mg/24 hr ring 1 vag ring VAGINAL X1 Patient Comments: Use 1 ring vaginally as directed. Use continuously. Insert a new Nuvaring every 3 weeks. Primary Care Provider: Care Physician,No Primary Referrals: Lyndsay Smith MD [Med Staff - Continuous Improvement Coordinator] - 3-5 Days Blane Ferrari MD [Non-Staff -Ordering Privileges] - 3-5 Days Care Physician,No Primary [Primary Care Provider] - Print Language: Kitt[place] Disposition Disposition: Home, Self Care
[2023-08-21 15:44] LABS: Absolute Lymphocyte Count 2.61 X10^3/uL (0.83-4.51); Absolute Neutrophil Count 6.4 X10^3/uL (2.0-7.7); Basophil# 0.08 X10^3/uL; Basophil% 0.8 % (0-1); Eosinophil# 0.07 X10^3/uL; Eosinophils% 0.7 % (0-5); Hemoglobin 15.5 g/dL (12.0-15.0); Lymphocyte # 2.61 X10^3/ul (0.83-4.51); Lymphocyte % 27.1 % (19-41); Mean Corp Hgb Conc 33.7 g/dL (32-36); Mean Corpuscular Hgb 30.2 pg (27.0-32.0); Mean Corpuscular Volume 89.7 fL (81-99); Mean Platelet Vol. 9.5 fl (6.2-12.0); Monocyte# 0.43 X10^3/uL; Monocyte% 4.5 % (0-10); NRBC Flagged by Analyzer 0 % (0-5); Neutrophil % 66.5 % (47-70); Platelet Count 287 K/mm3 (150-450); RBC Distribution Width CV 12.5 % (11.6-14.6); RBC Distribution Width SD 41.4 fl (35.1-43.9); Red Blood Count 5.13 M/mm3 (4.2-5.4); White Blood Count 9.6 K/mm3 (4.4-11.0)
[2023-08-21 16:02] LABS: Internal QC Validated? YES +Cl - CLEAR BKGD; Pregnancy, Serum, hCG Quali. NEGATIVE Negative
[2023-08-21 16:12] LABS: Anion Gap 4 (5-15); BUN 8 mg/dL (7-18); BUN/Creat Ratio 12.4 RATIO (10-20); Calcium,Total 9.9 mg/dL (8.5-10.1); Chloride 109 mmol/L (98-107); Creatinine, Serum 0.65 mg/dL (0.55-1.02); EST Glomerular Filtration Rate 117 mL/min (>60); Est Glom Filt Rate - Afr Amer 141 mL/min (>60); Estimated Creatinine Clearance 103.73 ml/min; Glucose 102 mg/dL (74-106); Potassium 3.3 mmol/L (3.5-5.1); Sodium Level 137 mmol/L (136-145)
[2023-08-21 16:30] VITALS: BP 96/79; PULSE 86; RESP 18; O2SAT 97
== END 2023-08-21 16:47 | disposition home or self-care (01) ==
PROVIDERS: Emergency Provider Emergency Medicine; Visit Provider Emergency Medicine
DX: R20.2 Paresthesia of skin (principal); R55 Syncope and collapse; F17.210 Nicotine dependence, cigarettes, uncomplicated
CPT/HCPCS: 70450; 80048; 84443; 84703; 85025; 93005; 99282; A4216

== ENCOUNTER → 2024-08-10 | Outpatient (CLI) | payer MEDICAID, SELFPAY ==
--- NOTE | 2024-08-10 14:13 | ECHOD_ITS ---
Reason For Study Reason For Study: ARRHYTHMIA Procedure This was a 2D Doppler, Color Flow transthoracic echocardiogram. The study was technically difficult. Exam performed in department. Left Ventricle Normal LV size. Left ventricular systolic function is normal. The left ventricular ejection fraction is 60 %. No regional wall motion abnormalities noted. Right Ventricle Normal RV size. Normal systolic function. Atria Normal left atrium. Normal right atrium. Mitral Valve Normal mitral valve. Tricuspid Valve Normal tricuspid valve. Aortic Valve Trisinus/trileaflet aortic valve. Pulmonic Valve Normal pulmonic valve. Great Vessels Normal aortic root. The pulmonary artery is normal size. Inferior vena cava collapse with respiration. Pericardium/Pleural No pericardial effusion. MMode/2D Measurements & Calculations LVIDd: 4.5 cm IVSd: 0.68 cm LVOT diam: 1.9 cm LVIDs: 3.1 cm LVPWd: 0.71 cm LVOT area: 2.9 cm2 RVDd: 3.0 cm FS: 29.8 % asc Aorta Diam: 2.4 cm LAV(MOD-bp): 23.8 ml LVAd ap4: 20.3 cm2 LAV(MOD-bp) Indexed: 15.0 ml/m2 LVLd ap4: 6.6 cm LAV(MOD-sp2): 21.3 ml EDV(MOD-sp4): 53.0 ml LAV(MOD-sp4): 22.5 ml EDV(sp4-el): 52.4 ml LVAs ap4: 11.4 cm2 LVLs ap4: 5.0 cm ESV(MOD-sp4): 21.0 ml ESV(sp4-el): 22.0 ml EF(MOD-sp4): 60.3 % EF(sp4-el): 58.1 % LVAd ap2: 23.2 cm2 SV(MOD-sp4): 32.0 ml SV(MOD-sp2): 40.3 ml LVLd ap2: 7.0 cm SI(MOD-sp4): 20.1 ml/m2 SI(MOD-sp2): 25.3 ml/m2 EDV(MOD-sp2): 62.7 ml EDV(sp2-el): 64.6 ml LVAs ap2: 12.4 cm2 LVLs ap2: 5.6 cm ESV(MOD-sp2): 22.4 ml ESV(sp2-el): 23.5 ml EF(MOD-sp2): 64.3 % SV(sp4-el): 30.5 ml Ao sinus diam: 2.[address] Junction: 2.0 cm LA dimension(2D): 2.8 cm LA A4 area: 11.5 cm2 RA A4 area: 6.8 cm2 TAPSE: 1.7 cm Time Measurements MV dec time: 0.19 sec Doppler Measurements & Calculations MV E max justus: 88.8 cm/sec Lat Peak E' Justus: 18.3 cm/sec Med Peak E' Justus: 16.3 cm/sec MV A max justus: 60.0 cm/sec E/E' lat: 4.8 E/E' med: 5.5 MV E/A: 1.5 MV dec slope: 475.5 cm/sec2 Ao V2 max: 117.2 cm/sec LV V1 max: 93.1 cm/sec Ao max P.5 mmHg LV V1 max P.5 mmHg Ao V2 mean: 88.2 cm/sec LV V1 mean P.2 mmHg Ao mean P.3 mmHg LV V1 mean: 72.6 cm/sec Ao V2 VTI: 23.0 cm LV V1 VTI: 18.3 cm AV (velocity ratio): 0.79 BETTE(I,D): 2.3 cm2 BETTE(V,D): 2.3 cm2 SV(LVOT): 53.6 ml PA V2 max: 85.4 cm/sec ECHO/Echo Complete Interpretation Summary Normal LV size. Left ventricular systolic function is normal. The left ventricular ejection fraction is 60 %. Structurally normal valves. Ordering Physician: Reno Medina Referring Physician: Reno Medina MD Performed By: Kaila Singh RDCS
== END | disposition home or self-care (01) ==
LOC: CVS 14:10
PROVIDERS: PCP Family Medicine; Referring Provider Internal Medicine Cardiovascular Disease; Visit Provider Internal Medicine Cardiovascular Disease
DX: R00.2 Palpitations (principal)
CPT/HCPCS: 93306